=== PATIENT | male | born 1980 | race Caucasian/White ===

== ENCOUNTER 2017-12-13 16:15 | Emergency (ER) | payer OTHER ==
[~2017-12-13] VITALS: Ht 193 cm; Wt 72.6 kg
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
[2017-12-13] MEDS ORDERED: ROBAXIN-750750 MG PO (17:13)
[2017-12-13] MEDS ORDERED: LIDODERM700 M1 TOPIC (17:13)
[2017-12-13] MEDS ORDERED: TYLENOL EXTRA500 MG ORAL (17:13)
[2017-12-13] MEDS ORDERED: Ketorolac 30mg Inj IM ONE (17:15)
[2017-12-13 17:21] VITALS: BP 132/85
[2017-12-13 17:24] VITALS: BP 132/85
== END 2017-12-13 17:24 | disposition home or self-care (01) ==
LOC: EMR 17:23
DX: S16.1XXA Strain of muscle, fascia and tendon at neck level, initial encounter (principal); M62.830 Muscle spasm of back; M62.838 Other muscle spasm; V43.52XA Car driver injured in collision with other type car in traffic accident, initial encounter; Y92.410 Unspecified street and highway as the place of occurrence of the external cause
CPT/HCPCS: 96372; 99283; J1885